=== PATIENT | female | born 1985 | race Caucasian/White ===

== ENCOUNTER 2019-08-17 16:37 | Emergency (ER) | payer BC ==
[~2019-08-17] VITALS: Ht 152.4 cm; Wt 62.1 kg
[~2019-08-17 16:37] MED LIST: IMODIUM A-D2 MG PO; PEPCID40 MG PO; ZOFRAN4 MG PO
[2019-08-17] MEDS ORDERED: LEXAPRO5 MG (17:34)
[2019-08-17] MEDS ORDERED: CLONAZEPAM0.25 MG (17:34)
[2019-08-17] MEDS ORDERED: FOLIC ACID1 MG (17:35)
[2019-08-17] MEDS ORDERED: ZITHROMAX500 MG (17:35)
== END 2019-08-17 22:11 | disposition home or self-care (01) ==
LOC: ER 16:37
DX: K52.89 Other specified noninfective gastroenteritis and colitis (principal)

== ENCOUNTER 2022-07-31 11:33 | Outpatient (CLI) | payer OTHER ==
[~2022-07-31 11:33] MED LIST changes: +CLONAZEPAM0.25 MG; +DICLOFENAC POTA50 MG PO; +FOLIC ACID1 MG; +LEXAPRO5 MG; +ZITHROMAX500 MG
== END 2022-07-31 11:49 | disposition home or self-care (01) ==
LOC: SONOGRAMA 11:33
DX: M75.101 Unspecified rotator cuff tear or rupture of right shoulder, not specified as traumatic (principal)

== ENCOUNTER 2022-09-27 08:46 | Emergency (ER) | payer OTHER ==
[~2022-09-27] VITALS: Ht 157.5 cm; Wt 63.5 kg
[2022-09-27] MEDS ORDERED: BUSPIRONE HCL5 MG PO (09:06)
[2022-09-27] MEDS ORDERED: TUSSIN DM SYRU118 ML PO (11:05)
[2022-09-27] MEDS ORDERED: CLARITIN-D 121 EACH PO (11:05)
[2022-09-27] MEDS ORDERED: ZITHROMAX500 MG PO (11:05)
== END 2022-09-27 11:14 | disposition home or self-care (01) ==
LOC: ER 08:46
DX: B34.9 Viral infection, unspecified (principal); Z88.8 Allergy status to other drugs, medicaments and biological substances; Z20.822 Contact with and (suspected) exposure to COVID-19

== ENCOUNTER 2022-10-31 00:46 | Emergency (ER) | payer OTHER ==
[~2022-10-31] VITALS: Ht 157.5 cm; Wt 63.0 kg
[~2022-10-31 00:46] MED LIST changes: +BUSPIRONE HCL5 MG PO; +CLARITIN-D 121 EACH PO; +TUSSIN DM SYRU118 ML PO; +ZITHROMAX500 MG PO
== END 2022-10-31 02:56 | disposition home or self-care (01) ==
LOC: ER 00:46
DX: R00.2 Palpitations (principal)

== ENCOUNTER 2023-10-31 13:12 | Outpatient (CLI) | payer OTHER | END 2023-10-31 13:23 | disposition home or self-care (01) | LOC: MAMO-SONO 13:12 | PROVIDERS: ATTEND Obstetrics & Gynecology | DX: N60.11 Diffuse cystic mastopathy of right breast (principal); N60.12 Diffuse cystic mastopathy of left breast; Z80.3 Family history of malignant neoplasm of breast ==

== ENCOUNTER 2024-09-24 05:32 | Day surgery (SDC) | payer OTHER ==
[2024-09-22 10:04] LABS: HEMATOCRIT 36.2 % (36.0-45.00); MEAN CELL VOLUME 87.2 fL (80.00-100.00); MEAN CORPUSCULAR HEMOGLOBIN 31.3 pg (27.00-32.0); MEAN CORPUSCULAR HGB CONC 35.9 g/dl (32.0-36.0); PLATELET COUNT 251 K/uL (150-450); RED BLOOD COUNT 4.15 M/uL (4.00-6.00); RED CELL DISTRIBUTION WIDTH 12.4 % (11.5-14.5)
[2024-09-22 10:52] LABS: INR 0.94; PARTIAL THROMBOPLASTIN TIME 26.7 SECONDS (22.0-34.0); PROTHROMBIN TIME 10.3 SECONDS (9.0-11.5)
[2024-09-24] MEDS ORDERED: POVIDONE-IODINE 118 ML BOTT TOP ONE (07:08)
[2024-09-24] MEDS ORDERED: CEFOXITIN SODIUM 2,000 MG VIAL IV ONE (07:34)
[2024-09-24] MEDS ORDERED: ONDANSETRON HCL 2 MG/ML VIAL ONE (10:10)
[2024-09-24] MEDS ORDERED: ONDANSETRON HCL 2 MG/ML VIAL IV ONE (10:20)
[2024-09-24] MEDS ORDERED: MORPHINE SULFATE 2 MG/ML CARTRIDGE IV ONE (10:50)
== END 2024-09-24 13:20 | disposition home or self-care (01) ==
LOC: CIR.AMB 05:32
PROVIDERS: ATTEND Obstetrics & Gynecology Maternal & Fetal Medicine
DX: O02.1 Missed abortion (principal); Z91.02 Food additives allergy status; J45.909 Unspecified asthma, uncomplicated

== ENCOUNTER 2024-10-02 08:39 | Outpatient (CLI) | payer OTHER ==
[2024-10-02] MEDS ORDERED: CELEBREX200MG PO (14:50)
== END 2024-10-02 08:48 | disposition home or self-care (01) ==
LOC: SONOGRAMA 08:39
PROVIDERS: ATTEND Obstetrics & Gynecology Maternal & Fetal Medicine
DX: N60.19 Diffuse cystic mastopathy of unspecified breast (principal); N63.0 Unspecified lump in unspecified breast; N60.11 Diffuse cystic mastopathy of right breast

== ENCOUNTER 2025-07-27 17:02 | Outpatient (CLI) | payer OTHER ==
[~2025-07-27] VITALS: Ht 157.5 cm; Wt 69.9 kg
[2025-07-27 16:28] VITALS: BP 125/78
[~2025-07-27 17:02] MED LIST changes: +CELEBREX200MG PO
[2025-07-27] MEDS ORDERED: PRENATA CHEWAB1 EACH PO (17:30)
[2025-07-27] MEDS ORDERED: CHILDREN'S ASPI81 MG PO (17:31)
[2025-07-27] MEDS ORDERED: IRON236 MG PO (17:31)
[2025-07-27 17:36] LABS: BASO % 0.1 % (0.1-1.2); EOS # 0.06 (0.04-0.54); EOS % 0.8 % (0.7-7.0); LYMPH # 1.23 (1.18-3.74); LYMPH % 16.8 % (19.3-53.1); MEAN PLATELET VOLUME 9.50 fl (9.4-12.4); MONO # 0.62 (0.24-0.82); MONO % 8.5 % (4.7-12.5); NEUT # 5.34 (1.56-6.13); NEUT % 72.8 % (34.0-71.1); RED CELL DISTRIBUTION WIDTH 13.3 % (11.6-14.4); URINE APPEARANCE Clear; URINE BILIRRUBIN Negative (NEGATIVE); URINE BLOOD Trace; URINE COLOR Yellow; URINE GLUCOSE Negative (NEGATIVE); URINE KETONE Negative (NEGATIVE); URINE LEUKOCYTE Trace; URINE NITRATE Negative; URINE PROTEIN Negative (NEGATIVE); URINE UROBILINOGEN 0.2 E.U./dl
[2025-07-27 17:40] LABS: URINE BACTERIA 107.8 uL (0.0-1933); URINE EPITHELIAL CELLS 9.2 uL (0.0-38.8); URINE WBC 22.0 uL (0.0-23.2)
[2025-07-27 17:41] LABS: URINE CAST 0.00 uL (0.0-1.40); URINE RBC 1.3 uL (0.0-20.8)
[2025-07-27 19:28] VITALS: BP 110/68
[2025-07-27 23:09] VITALS: BP 98/60
[2025-07-28 03:37] VITALS: BP 97/58
[2025-07-28 06:08] VITALS: BP 100/62; O2SAT 97
[2025-07-28 12:23] VITALS: BP 100/60
== END 2025-07-28 12:26 | disposition home or self-care (01) ==
LOC: OBS/DEL 17:02
PROVIDERS: ATTEND Specialist
DX: O26.853 Spotting complicating pregnancy, third trimester (principal); O99.013 Anemia complicating pregnancy, third trimester; O26.843 Uterine size-date discrepancy, third trimester; Z3A.31 31 weeks gestation of pregnancy; O09.523 Supervision of elderly multigravida, third trimester